=== PATIENT | male | born 1970 | race Caucasian/White ===

== ENCOUNTER 2024-09-05 17:23 | Emergency (ER) | payer OTHER ==
[~2024-09-05] VITALS: Ht 182.9 cm; Wt 86.2 kg
[2024-09-05] MEDS ORDERED: DEXAMETHASONE SODIUM PHOSPHATE 4 MG/ML VIAL IM STA (21:04)
[2024-09-05] MEDS ORDERED: ORPHENADRINE CITRATE 30 MG/ML AMPUL IM STA (21:04)
== END 2024-09-06 00:27 | disposition home or self-care (01) ==
LOC: ER 17:24
DX: S49.82XA Other specified injuries of left shoulder and upper arm, initial encounter (principal); W18.39XA Other fall on same level, initial encounter; Y93.18 Activity, surfing, windsurfing and boogie boarding; Y92.832 Beach as the place of occurrence of the external cause
CPT/HCPCS: 73030; 96365; 99283; J1100; J2360